=== PATIENT | male | born 1980 | race Hispanic/Latino ===

== ENCOUNTER → 2017-07-30 | Outpatient (CLI) | payer OTHER ==
--- NOTE | 2017-07-30 09:39 | Diagnostic Imaging Report ---
PROCEDURE:ABDOMINAL ULTRASOUND COMPARISON:None. INDICATIONS:Left Sided Abdominal Pain FINDINGS: Liver: Measures 15.9 cm in the midclavicular line. Increased hepatic parenchymal echogenicity. No focal mass. Main portal vein: Measures 13 mm with normal hepatopedal flow. Gallbladder: No stones or wall thickening. Common Bile Duct: Measures 0.4 cm. No echogenic filling defect. Sonographic Vargas's sign: Negative Right kidney: Measures 11.0 x 5.1 x 6.3 cm. No solid or cystic mass, echogenic calculi or hydronephrosis. Normal parenchymal echogenicity. Left kidney: Measures 11.5 x 6.5 x 6.4 cm. No solid or cystic mass, echogenic calculi or hydronephrosis. Normal parenchymal echogenicity. Spleen: Measures 10.0 x 3.9 x 3.4 cm. No focal mass. Pancreas: Partially obscured by bowel gas. Inferior vena cava: Normal. Aorta: Limited evaluation and obscured by bowel gas. Ascites: None. CONCLUSION: 1. No acute sonographic abnormality. 2. Increased echogenicity of the liver compatible with fatty infiltration. Tad Hunt D.O. Dictated by: Tad Hunt D.O. on 07/30/2017 at 9:39 Electronically approved by: Tad Hunt D.O. on 07/30/2017 at 9:39
== END ==
LOC: US 07:59
PROVIDERS: ATTEND Family Medicine
DX: R10.32 Left lower quadrant pain (principal); R10.12 Left upper quadrant pain; K76.0 Fatty (change of) liver, not elsewhere classified
CPT/HCPCS: 76700